=== PATIENT | female | born 1985 | race Caucasian/White ===

== ENCOUNTER 2017-04-24 15:35 | Emergency (ER) | payer MEDICAID ==
[2017-04-24 15:44] VITALS: BP 107/63; PULSE 76; RESP 16; TEMP 98.2; O2SAT 97
--- NOTE | 2017-04-24 15:59 | EDPHY ---
H & P Stated Complaint: inj r lateralfoot moving a couch Time Seen by Provider: 04/24/17 15:48 HPI/ROS: CHIEF COMPLAINT: Right foot pain HISTORY OF PRESENT ILLNESS: The patient is a 31-year-old female who comes to the emergency department complaining of pain to the right distal foot over the 4th and 5th metatarsal bones. She denies other injury. She states that she was helping to carry couch down the stairs when she missed a step and inverted her foot. She denies any pain in her knee or ankle. She has been ambulatory in flip-flops. REVIEW OF SYSTEMS: Constitutional: denies: chills, fever, recent illness, recent injury EENTM: denies: blurred vision, double vision, nose congestion Respiratory: denies: cough, shortness of breath Cardiac: denies: chest pain, irregular heart rate, lightheadedness, palpitations Gastrointestinal/Abdominal: denies: abdominal pain, diarrhea, nausea, vomiting, blood streaked stools Genitourinary: denies: dysuria, frequency, hematuria, pain Musculoskeletal: See HPI Skin: denies: lesions, rash, jaundice, bruising Neurological: denies: headache, numbness, paresthesia, tingling, dizziness, weakness Hematologic/Lymphatic: denies: blood clots, easy bleeding, easy bruising Immunologic/allergic: denies: HIV/AIDS, transplant EXAM: GENERAL: Well-appearing, well-nourished and in no acute distress. HEAD: Atraumatic, normocephalic. EYES: Pupils equal round and reactive to light, extraocular movements intact, sclera anicteric, conjunctiva are normal. ENT: TMs normal, nares patent, oropharynx clear without exudates. Moist mucous membranes. NECK: Normal range of motion, supple without lymphadenopathy or JVD. LUNGS: Breath sounds clear to auscultation bilaterally and equal. No wheezes rales or rhonchi. HEART: Regular rate and rhythm without murmurs, rubs or gallops. ABDOMEN: Soft, nontender, normoactive bowel sounds. No guarding, no rebound. No masses appreciated. BACK: No CVA tenderness, no spinal tenderness, step-offs or deformities EXTREMITIES: Mild pain to distal right foot, see diagram , minimal swelling NEUROLOGICAL: Cranial nerves II through XII grossly intact. Normal speech, normal gait. 5/5 strength, normal movement in all extremities, normal sensation PSYCH: Normal mood, normal affect. SKIN: Warm, dry, normal turgor, no visible rashes or lesions. Source: Patient Exam Limitations: No limitations - Personal History LMP (Females 10-55): 22-28 Days Ago Current Tetanus/Diphtheria Vaccine: Unsure - Medical/Surgical History Hx Asthma: No Hx Chronic Respiratory Disease: No Hx Diabetes: No Hx Cardiac Disease: No Hx Renal Disease: No Hx Cirrhosis: No Hx Alcoholism: No Hx HIV/AIDS: No Hx Splenectomy or Spleen Trauma: No Other PMH: denies - Family History Significant Family History: No pertinent family hx - Social History Smoking Status: Never smoked Alcohol Use: Sober Drug Use: None Constitutional: Initial Vital Signs Temperature (C) 36.8 C 04/24/17 15:42 Heart Rate 76 04/24/17 15:42 Respiratory Rate 16 04/24/17 15:42 Blood Pressure 107/63 04/24/17 15:42 O2 Sat (%) 97 04/24/17 15:42 O2 Delivery Mode Room Air Allergies/Adverse Reactions: amoxicillin [From Augmentin] Allergy (Verified 04/24/17 15:41) clavulanic acid [From Augmentin] Allergy (Verified 04/24/17 15:41) Home Medications: Medication Instructions Recorded NK [No Known Home Meds] 04/24/17 ED Images - Extremities Feet Top: 1 - Mild pain and swelling. Normal range of motion. Normal sensation. Normal capillary refill Medical Decision Making - Diagnostics Imaging Results: Imaging Impressions Foot X-Ray 04/24/17 15:57 Impression: Nondisplaced oblique fracture in the distal diaphysis and metadiaphysis of the fifth metatarsal. Imaging: I viewed and interpreted images myself Procedures: Procedure: Splint placement. A [place] boot splint was applied. After application of the splint I returned and re-examined the patient. The splint was adequately immobilizing the joint and distal to the splint the patient's circulation and sensation was intact. ED Course/Re-evaluation: The patient has a nondisplaced fracture of the 5th metatarsal. I have placed her in a [place] boot. We discussed recovery in follow-up. We discussed limitations and indications for returning. She understands and agrees with this plan. She declines further workup or testing at this time. Differential Diagnosis: Partial list of the Differential diagnosis considered include but were not limited to; fracture, dislocation, toe injury and although unlikely based on the history and physical exam, I also considered infection, non accidental trauma. I discussed these differential diagnoses and the plan with the patient as well as the usual and expected course. The patient understands that the diagnosis is provisional and that in medicine we are not always correct and that further workup is often warranted. Usual and customary warnings were given. All of the patient's questions were answered. The patient was instructed to return to the emergency department should the symptoms at all worsen or return, otherwise to followup with the physician as we discussed. Departure - Departure Disposition: Home, Routine, Self-Care Clinical Impression: Foot fracture, right Qualifiers: Encounter type: initial encounter Fracture type: closed Qualified Code(s): S92.901A - Unspecified fracture of right foot, initial encounter for closed fracture Condition: Fair Instructions: Foot Fracture in Adults (ED) Referrals: UNKNOWN,DOCTOR [Other] - As per Instructions Brian Edwards MD [Medical Doctor] - 5-7 days, call for appt.
== END 2017-04-24 16:38 | disposition home or self-care (01) ==
DX: S92.354A Nondisplaced fracture of fifth metatarsal bone, right foot, initial encounter for closed fracture (principal); X58.XXXA Exposure to other specified factors, initial encounter
CPT/HCPCS: L4386

== ENCOUNTER 2017-07-16 19:22 | Emergency (ER) | payer MEDICAID ==
[2017-07-16 19:32] VITALS: TEMP 97.9
--- NOTE | 2017-07-16 23:18 | EDPHY ---
H & P Stated Complaint: Abd Pain x 1 month, Rash, Bloating Time Seen by Provider: 07/16/17 23:02 HPI/ROS: HPI The patient presents with abdominal pain, bloating, weight gain over the last 1 and half months. She just returned today from a trip to [place] where her leg swelling and bloating became so severe she had to lay down for 2 days straight. She was concerned so came directly to the emergency room. She says she has gained 30 lb in the last 1 and half months unintentionally and works out frequently. As she does not take any medications and has no past medical history except for PCOS. As she has occasional abdominal pain in her right abdomen that feels something like a hernia, though she does not have currently. She feels nauseated though is able to eat and drink normally and is having normal bowel movements. She does not have any chest pain or shortness of breath.. She did notice a rash on his her arms. REVIEW OF SYSTEMS Constitutional: No fever, no chills. Eyes: No discharge. ENT: No sore throat. Cardiovascular: No chest pain, no palpitations. Respiratory: No cough, no shortness of breath. Gastrointestinal: No abdominal pain, no vomiting. Genitourinary: No hematuria. Musculoskeletal: No back pain. Skin: No rashes. Neurological: No headache. PMHx: PCOS Soc Hx: Exercises frequently PHYSICAL General Appearance: Alert, no distress Eyes: Pupils equal and round no pallor or injection ENT, Mouth: Mucous membranes moist Respiratory: There are no retractions, lungs are clear to auscultation Cardiovascular: Regular rate and rhythm Gastrointestinal: Abdomen is soft and non-tender, no masses, bowel sounds normal Neurological: A&O, moves all extremities Skin: Warm and dry, rash which is erythematous and papular of her forearms bilaterally and in the flexor surfaces of her knees Musculoskeletal: Neck is supple non tender Extremities: symmetrical, full range of motion Psychiatric: Patient is oriented X 3, there is no agitation Source: Patient Exam Limitations: No limitations - Personal History LMP (Females 10-55): Over 28 Days Ago Current Tetanus Diphtheria and Acellular Pertussis (TDAP): Yes - Medical/Surgical History Hx Asthma: No Hx Chronic Respiratory Disease: No Hx Diabetes: No Hx Cardiac Disease: No Hx Renal Disease: No Hx Cirrhosis: No Hx Alcoholism: No Hx HIV/AIDS: No Hx Splenectomy or Spleen Trauma: No Other PMH: PCOS - Social History Smoking Status: Never smoked Constitutional: Initial Vital Signs Temperature (C) 36.6 C 07/16/17 19:30 Heart Rate 61 07/16/17 19:30 Respiratory Rate 18 07/16/17 19:30 Blood Pressure 131/63 H 07/16/17 19:30 O2 Sat (%) 98 07/16/17 19:30 O2 Delivery Mode Room Air Allergies/Adverse Reactions: amoxicillin [From Augmentin] Allergy (Verified 04/24/17 15:41) clavulanic acid [From Augmentin] Allergy (Verified 04/24/17 15:41) Home Medications: Medication Instructions Recorded NK [No Known Home Meds] 04/24/17 Medical Decision Making - Diagnostics Imaging Results: Imaging Impressions Chest X-Ray 07/16/17 23:15 Impression: Negative frontal chest radiograph. Differential Diagnosis: This is a 32-year-old female who presents with weight gain over the last 1 and half months, total of 30 lb. Differential diagnosis includes fluid overload state related to renal disease, hepatic disease, heart disease. Hypothyroidism with weight gain is also a possibility. In the emergency department, patient's labs were checked and were all unremarkable. TSH is slightly elevated and this could possibly be the cause of her weight gain. I have advised her to follow up with [place] for primary care. We will issue her a copy of all of her labs. - Data Points Laboratory Results: Laboratory Results 07/16/17 23:35 07/16/17 23:35 07/16/17 07/16/17 23:35 23:35 WBC 6.92 10^3/uL 10^3/uL (3.80-9.50) RBC 4.46 10^6/uL 10^6/uL (4.18-5.33) Hgb 13.8 g/dL g/dL (12.6-16.3) Hct 42.4 % % (38.0-47.0) MCV 95.1 fL fL (81.5-99.8) MCH 30.9 pg pg (27.9-34.1) MCHC 32.5 g/dL g/dL (32.4-36.7) RDW 12.7 % % (11.5-15.2) Plt Count 180 10^3/uL 10^3/uL (150-400) MPV 8.5 fL L fL (8.7-11.7) Neut % (Auto) 53.5 % % (39.3-74.2) Lymph % (Auto) 33.4 % % (15.0-45.0) [place] % (Auto) 10.5 % % (4.5-13.0) Eos % (Auto) 2.0 % % (0.6-7.6) Baso % (Auto) 0.3 % % (0.3-1.7) Nucleat RBC Rel Count 0.0 % % (0.0-0.2) Absolute Neuts (auto) 3.70 10^3/uL 10^3/uL (1.70-6.50) Absolute Lymphs (auto) 2.31 10^3/uL 10^3/uL (1.00-3.00) Absolute Monos (auto) 0.73 10^3/uL 10^3/uL (0.30-0.80) Absolute Eos (auto) 0.14 10^3/uL 10^3/uL (0.03-0.40) Absolute Basos (auto) 0.02 10^3/uL 10^3/uL (0.02-0.10) Absolute Nucleated RBC 0.00 10^3/uL 10^3/uL (0-0.01) Immature Gran % 0.3 % % (0.0-1.1) Immature Gran # 0.02 10^3/uL 10^3/uL (0.00-0.10) Sodium 138 mEq/L mEq/L (134-144) Potassium 3.9 mEq/L mEq/L (3.5-5.2) Chloride 100 mEq/L mEq/L (97-110) Carbon Dioxide 29 mEq/l mEq/l (22-31) Anion Gap 9 mEq/L mEq/L (8-16) BUN 16 mg/dL mg/dL (7-23) Creatinine 0.8 mg/dL mg/dL (0.6-1.0) Estimated GFR > 60 Glucose 87 mg/dL mg/dL (70-100) Calcium 9.9 mg/dL mg/dL (8.5-10.4) Total Bilirubin 0.7 mg/dL mg/dL (0.1-1.4) AST 45 IU/L IU/L (14-46) ALT 55 IU/L H IU/L (9-52) Alkaline Phosphatase 93 IU/L IU/L (38-126) Total Protein 7.7 g/dL g/dL (6.3-8.2) Albumin 4.2 g/dL g/dL (3.5-5.0) TSH 5.770 uIU/mL H uIU/mL (0.465-4.680) Departure - Departure Disposition: Home, Routine, Self-Care Clinical Impression: Weight gain, Rash Abdominal pain Qualifiers: Abdominal location: generalized Qualified Code(s): R10.84 - Generalized abdominal pain Condition: Good Instructions: Eczema (ED) Additional Instructions: Your lab tests today look normal. You should follow up with your [place] doctor in the next 1 week. Please call for an appointment. Referrals: [facility] ,. [Edm Groups for Call Sched] - As per Instructions
[2017-07-16 23:42] LABS: % IMMATURE GRANULYOCYTES 0.3 % (0.0-1.1); ABSOLUTE IMMATURE GRANULOCYTES 0.02 10^3/uL (0.00-0.10); ADD DIFF? NO; ADD MORPH? NO; ADD SCAN? NO; ATYPICAL LYMPHOCYTE FLAG 10 (0-99); FRAGMENT RBC FLAG 0 (0-99); HEMATOCRIT 42.4 % (38.0-47.0); HEMOGLOBIN 13.8 g/dL (12.6-16.3); LEFT SHIFT FLG 0 (0-99); LIPEMIA HEMOLYSIS FLAG 80 (0-99); MEAN CELL HEMOGLOBIN 30.9 pg (27.9-34.1); MEAN CELL HEMOGLOBIN CONCENTR. 32.5 g/dL (32.4-36.7); MEAN CELL VOLUME 95.1 fL (81.5-99.8); MEAN PLATELET VOLUME 8.5 fL (8.7-11.7); PLATELET CLUMPS FLAG 0 (0-99); PLATELET COUNT 180 10^3/uL (150-400); RED BLOOD CELL COUNT 4.46 10^6/uL (4.18-5.33); RED CELL DISTRIBUTION WIDTH 12.7 % (11.5-15.2)
[2017-07-16 23:53] LABS: ALANINE AMINOTRANSFERASE 55 IU/L (9-52); ALBUMIN 4.2 g/dL (3.5-5.0); ALKALINE PHOSPHATASE 93 IU/L (38-126); ANION GAP 9 mEq/L (8-16); ASPARTATE AMINOTRANSFERASE 45 IU/L (14-46); BILIRUBIN,TOTAL 0.7 mg/dL (0.1-1.4); CALCIUM 9.9 mg/dL (8.5-10.4); CARBON DIOXIDE 29 mEq/l (22-31); CHLORIDE 100 mEq/L (97-110); CREATININE 0.8 mg/dL (0.6-1.0); GLOMERULAR FILTRATION RATE > 60; GLUCOSE 87 mg/dL (70-100); POTASSIUM 3.9 mEq/L (3.5-5.2); SODIUM 138 mEq/L (134-144); TOTAL PROTEIN 7.7 g/dL (6.3-8.2)
[2017-07-17 01:11] VITALS: BP 98/51; PULSE 87; RESP 18; O2SAT 94
== END 2017-07-17 01:21 | disposition home or self-care (01) ==
DX: R10.84 Generalized abdominal pain (principal); R63.5 Abnormal weight gain; R21 Rash and other nonspecific skin eruption

== ENCOUNTER 2018-01-11 10:07 | Emergency (ER) | payer MEDICAID ==
[2018-01-11 10:17] VITALS: RESP 18
[2018-01-11] MEDS ORDERED: ONDANSETRON DISINTEGRATING 4 MG TAB PO ONE (10:26)
[2018-01-11] MEDS ORDERED: NS 1,000 ML IV ONE (10:26)
--- NOTE | 2018-01-11 10:26 | EDPHY ---
H & P Stated Complaint: cramping/spotting/+preg Time Seen by Provider: 01/11/18 10:25 HPI/ROS: HPI: This is a 32-year-old female who presents with Chief Complaint: cramping/spotting/+preg Location: Suprapubic Quality: Crampy Duration: Started yesterday evening Signs and Symptoms: no fever, + nausea, no vomiting, no hematemesis, no blood in stool, no abdominal bloating, no diarrhea, no back pain, no urinary symptoms , + vaginal spotting started this morning Timing: Acute, intermittent episodes Severity: Moderate Context: Patient is , LMP: November 04, 2017; EGA: 9 weeks, 5 days, DEX: 08/11/2018 presents with sudden onset late last evening of suprapubic cramping, intermittent episodes with scant bright red vaginal spotting this morning. Has not gone through 1 maxi pad. + moderate nausea since October. She is a [facility] patient and has not established care with an portfolio administrator yet. Last sexual intercourse was 1 day ago. She has 2 older living children. No history of miscarriages. Patient is unsure of her blood type. Reports taking vitamins. Modifying Factors: None Comment: ROS: see HPI Constitutional: No fever, no chills, no weight loss Eyes: No blurred vision Respiratory: No shortness of breath, no cough Cardiovascular: No chest pain, no palpitations Gastrointestinal: + nausea, no vomiting, no diarrhea, no hematemesis, no blood in stool Genitourinary: No dysuria, no blood in urine Extremities: No myalgias, no edema Neurologic: No weakness, no numbness Skin: No rashes, no petechiae Hematologic: No bruising, no bleeding MEDICAL/SURGICAL/SOCIAL HISTORY: Medical history: Polycystic ovary syndrome. Does not take any regular medications. Surgical history: Denies Social history: Employed. CONSTITUTIONAL: Well-developed, well-nourished polite and cooperative adult female, awake and alert, no obvious distress HEENT: Atraumatic and normocephalic, PERRL, EOMI. Tympanic membranes clear. Oropharynx clear, no exudate and moist pink mucosa. Airway patent. No lymphadenopathy. No meningismus. Cardiovascular: Normal S1/S2, regular rate, regular rhythm, without murmur rub or gallop. PULMONARY/CHEST: Symmetrical and nontender. Clear to auscultation bilaterally. Good air movement. No accessory muscle usage. ABDOMEN: Soft, nondistended, nontender, no rebound, no guarding, no peritoneal signs, no masses or organomegaly. No CVAT. EXTREMITIES: 2/2 pulses, strength 5/5, no deformities, no clubbing, no cyanosis or edema. NEUROLOGICAL: no focal neuro deficits. GCS 15. SKIN: Warm and dry, no erythema. no rash. Good capillary refill. Source: Patient Exam Limitations: No limitations - Personal History LMP (Females 10-55): Over 28 Days Ago - Medical/Surgical History Hx Asthma: No Hx Chronic Respiratory Disease: No Hx Diabetes: No Hx Cardiac Disease: No Hx Renal Disease: No Hx Cirrhosis: No Hx Alcoholism: No Hx HIV/AIDS: No Hx Splenectomy or Spleen Trauma: No Other PMH: PCOS - Social History Smoking Status: Never smoked Constitutional: Initial Vital Signs Temperature (C) 36.7 C 01/11/18 10:15 Heart Rate 74 01/11/18 10:15 Respiratory Rate 18 01/11/18 10:15 Blood Pressure 135/74 H 01/11/18 10:15 O2 Sat (%) 99 01/11/18 10:15 O2 Delivery Mode Room Air Allergies/Adverse Reactions: amoxicillin [From Augmentin] Allergy (Verified 04/24/17 15:41) clavulanic acid [From Augmentin] Allergy (Verified 04/24/17 15:41) Home Medications: Medication Instructions Recorded NK [No Known Home Meds] 04/24/17 Medical Decision Making - Diagnostics Imaging Results: Imaging Impressions Obstetrics Ultrasound 01/11/18 10:30 Impression: There is a rounded cystic structure suggestive of a gestational sac containing a yolk sac but no embryonic pole, with an estimated age of 5 weeks 2 days. There is no suspicious adnexal mass, or free fluid. Recommendation: Continued clinical correlation with serial quantitative beta hCG values, and follow-up sonography in 2 weeks to confirm a viable intrauterine . Findings were discussed with Ana Valenzuela PA-C at 12:03, on 01/11/2018. ED Course/Re-evaluation: Labs, urinalysis, IV fluids, oral medications, OB ultrasound ordered Given 1 liter NS and PO Zofran Urinalysis shows no signs of infection; 2+ blood and 10-15 RBCs noted. Labs reviewed: O positive; no RhoGAM needed; beta HCG 5724; H&H stable No signs of appendicitis/pelvic inflammatory disease/sepsis/dehydration/urinary tract infection Called by Dr. Luis who advises that ultrasound shows a gestational sac and a yolk sac but no pole dating at 5 weeks 2 days so this is likely an early . No free fluid/hemorrhage/ovarian torsion. Patient politely declines pelvic exam as she wishes to follow up with her OBGYN. Denies any trauma. Advised patient to follow up with OBGYN with repeat serial HCG and ultrasound. Pelvic rest. This patient was seen under the supervision of my secondary supervising physician. I evaluated care for this patient independently. Differential Diagnosis: Vaginal bleeding including but not limited to ectopic , menses, miscarriage, and dysfunctional uterine bleeding. - Data Points Laboratory Results: Laboratory Results 01/11/18 10:20 01/11/18 10:20 01/11/18 01/11/18 01/11/18 12:20 12:00 11:00 WBC RBC Hgb Hct MCV MCH MCHC RDW Plt Count MPV Neut % (Auto) Lymph % (Auto) [place] % (Auto) Eos % (Auto) Baso % (Auto) Nucleat RBC Rel Count Absolute Neuts (auto) Absolute Lymphs (auto) Absolute Monos (auto) Absolute Eos (auto) Absolute Basos (auto) Absolute Nucleated RBC Immature Gran % Immature Gran # Sodium Potassium Chloride Carbon Dioxide Anion Gap BUN Creatinine Estimated GFR Glucose Calcium Beta HCG, Qual Beta HCG, Quant Urine Color YELLOW Urine Appearance CLEAR Urine pH 6.0 (5.0-7.5) Ur Specific [place] 1.020 (1.002-1.030) Urine Protein NEGATIVE (NEGATIVE) Urine Ketones NEGATIVE (NEGATIVE) Urine Blood 2+ H (NEGATIVE) Urine Nitrate NEGATIVE (NEGATIVE) Urine Bilirubin NEGATIVE (NEGATIVE) Urine Urobilinogen NEGATIVE EU EU (0.2-1.0) Ur Leukocyte Esterase NEGATIVE (NEGATIVE) Urine RBC 10-15 /hpf H /hpf (0-3) Urine WBC 1-3 /hpf /hpf (0-3) Ur Epithelial Cells TRACE /lpf /lpf (NONE-1+) Urine Mucus TRACE /lpf /lpf (NONE-1+) Urine Glucose NEGATIVE (NEGATIVE) Patient ABO/Rh O POSITIVE REJ 01/11/18 01/11/18 01/11/18 10:20 10:20 10:20 WBC 6.67 10^3/uL 10^3/uL (3.80-9.50) RBC 4.49 10^6/uL 10^6/uL (4.18-5.33) Hgb 14.0 g/dL g/dL (12.6-16.3) Hct 41.5 % % (38.0-47.0) MCV 92.4 fL fL (81.5-99.8) MCH 31.2 pg pg (27.9-34.1) MCHC 33.7 g/dL g/dL (32.4-36.7) RDW 12.4 % % (11.5-15.2) Plt Count 196 10^3/uL 10^3/uL (150-400) MPV 8.6 fL L fL (8.7-11.7) Neut % (Auto) 62.2 % % (39.3-74.2) Lymph % (Auto) 26.1 % % (15.0-45.0) [place] % (Auto) 10.0 % % (4.5-13.0) Eos % (Auto) 1.0 % % (0.6-7.6) Baso % (Auto) 0.3 % % (0.3-1.7) Nucleat RBC Rel Count 0.0 % % (0.0-0.2) Absolute Neuts (auto) 4.14 10^3/uL 10^3/uL (1.70-6.50) Absolute Lymphs (auto) 1.74 10^3/uL 10^3/uL (1.00-3.00) Absolute Monos (auto) 0.67 10^3/uL 10^3/uL (0.30-0.80) Absolute Eos (auto) 0.07 10^3/uL 10^3/uL (0.03-0.40) Absolute Basos (auto) 0.02 10^3/uL 10^3/uL (0.02-0.10) Absolute Nucleated RBC 0.00 10^3/uL 10^3/uL (0-0.01) Immature Gran % 0.4 % % (0.0-1.1) Immature Gran # 0.03 10^3/uL 10^3/uL (0.00-0.10) Sodium 141 mEq/L mEq/L (135-145) Potassium 4.1 mEq/L mEq/L (3.5-5.2) Chloride 106 mEq/L mEq/L (97-110) Carbon Dioxide 25 mEq/l mEq/l (22-31) Anion Gap 10 mEq/L mEq/L (8-16) BUN 14 mg/dL mg/dL (7-23) Creatinine 0.7 mg/dL mg/dL (0.6-1.0) Estimated GFR > 60 Glucose 73 mg/dL mg/dL (70-100) Calcium 9.3 mg/dL mg/dL (8.5-10.4) Beta HCG, Qual Cancelled Beta HCG, Quant 5724.60 mIU/mL H mIU/mL (0.00-4.83) Urine Color Urine Appearance Urine pH Ur Specific [place] Urine Protein Urine Ketones Urine Blood Urine Nitrate Urine Bilirubin Urine Urobilinogen Ur Leukocyte Esterase Urine RBC Urine WBC Ur Epithelial Cells Urine Mucus Urine Glucose Patient ABO/Rh Medications Given: Discontinued Medications Sodium Chloride (Ns) 1,000 mls @ 0 mls/hr IV ONCE ONE; Wide Open PRN Reason: Protocol Stop: 01/11/18 10:27 Last Admin: 01/11/18 10:36 Dose: 1,000 mls Ondansetron HCl (Zofran Odt) 4 mg PO EDNOW ONE Stop: 01/11/18 10:27 Last Admin: 01/11/18 10:35 Dose: 4 mg Departure - Departure Disposition: Home, Routine, Self-Care Clinical Impression: Threatened in first trimester Condition: Good Instructions: Threatened Miscarriage (ED) Additional Instructions: Observe pelvic rest. Drink plenty of fluids avoid any strenuous activity. Establish care with her OBGYN in follow-up within the next 3-5 days for repeat beta HCG and possibly a repeat ultrasound in the near future. Return to the ER immediately if you experience new, continued or worsening abdominal pain, fevers/chills, inability to tolerate oral intake, new pain, or any other symptoms that concern you. Referrals: [facility] [Other] - As per Instructions Stand Alone Forms: Work Excuse
[2018-01-11 10:40] LABS: PLATELET COUNT 196 10^3/uL (150-400)
[2018-01-11 12:10] VITALS: O2SAT 95
[2018-01-11 13:03] VITALS: BP 123/78; PULSE 78; TEMP 98.6
== END 2018-01-11 13:03 | disposition home or self-care (01) ==
DX: O20.0 Threatened abortion (principal); E86.9 Volume depletion, unspecified; Z3A.10 10 weeks gestation of pregnancy